=== PATIENT | female | born 1980 | race Caucasian/White ===

== ENCOUNTER → 2017-11-05 10:38 | Outpatient (CLI) | payer BC, SELFPAY ==
[2017-11-05 11:36] LABS: Add Manual Diff / Slide Review NO; Basophils Percent Auto 0.3 % (0-2); Eosinophils Percent Auto 1.1 % (2-4); Hematocrit 36.8 % (36-46); Hemoglobin 13.3 g/dL (12.0-16.0); Lymphocytes Percent Auto 13.1 % (25-40); Mean Corpuscular Hemoglobin 31.8 PG (26-34); Mean Corpuscular Volume 88.4 fL (80-100); Monocytes Percent Auto 5.8 % (3-14); Neutrophils Absolute Auto 9000 /uL (3000-5900); Neutrophils Percent Auto 79.7 % (50-75); Platelet Count 199 X10^3/uL (150-400); Red Blood Cell Count 4.17 X10^6/uL (4.0-5.2); Red Cell Distribution Width 12.9 % (11.6-14.8); White Blood Cell Count 11.4 X10^3/uL (4.5-11.0)
[2017-11-05 12:39] LABS: Appearance Urine UA CLEAR; Bilirubin Urine UA NEGATIVE (NEGATIVE); Color Urine UA YELLOW; Glucose Urine UA NEGATIVE (Normal); Ketones Urine UA NEGATIVE (NEGATIVE); Leukocyte Esterase Urine UA NEGATIVE (NEGATIVE); Nitrite Urine UA NEGATIVE (NEGATIVE); Occult Blood Urine UA TRACE-INTACT (Negative); Protein Urine UA NEGATIVE (Negative); Specific Gravity Urine UA 1.025 (1.000-1.035); Urobilinogen Urine UA 0.2 E.U./dL (0.2); pH Urine UA 6.5 (4.5-8.0)
[2017-11-05 12:50] LABS: Amorphous Sediment Urine 2+; Bacteria Urine Few (2-10); RBC Urine 1-5/HPF (0-5/HPF); Squamous Epithelial Cell Urine 1-5 /HPF; WBC Urine 0-1/HPF (0-5/HPF)
[2017-11-05 12:51] LABS: Culture Indicated Urine Cult Not Indicated
[2017-11-05 19:02] LABS: HIV 1 and 2 Antibody NEGATIVE (NEGATIVE); Hep C Virus Ab w/Reflex Quant NEGATIVE s/c (NEGATIVE); Hepatitis B Surface Antigen NEGATIVE s/c (NEGATIVE)
[2017-11-06 15:49] LABS: HSV 2 IGG AB < 0.90 index (< 0.90); HSV1IGG 7.56 index (< 0.90)
[2017-11-08 12:47] LABS: Rapid Plasma Reagin NON-REACTIVE
== END ==
PROVIDERS: Family Provider Family Medicine; PCP Family Medicine; Visit Provider Family Medicine
DX: Z34.91 Encounter for supervision of normal pregnancy, unspecified, first trimester (principal)
CPT/HCPCS: 36415; 80055; 82105; 86787; 86850; 86900; 86901; 87086

== ENCOUNTER → 2017-11-16 16:59 | Outpatient (CLI) | payer BC, SELFPAY ==
[2017-11-30 10:27] LABS: Informaseq SEE SEPERATE REPORT
== END ==
PROVIDERS: Family Provider Family Medicine; PCP Family Medicine; Visit Provider Family Medicine
DX: O09.529 Supervision of elderly multigravida, unspecified trimester (principal)
CPT/HCPCS: 36415; 81507

== ENCOUNTER → 2018-01-18 07:44 | Outpatient (CLI) | payer BC, SELFPAY ==
--- NOTE | 2018-01-18 07:46 | DI.US.S_ITS ---
PROCEDURE: US OB >= 14 WEEKS FETUS INDICATIONS: 20 WEEK ANATOMICAL SURVEY OUTSIDE/PRIOR DATING DATA: Last menstrual period (LMP): 09/05/17. LMP-based estimated date of delivery (FINN): 20 week 4 days. First dating scan (date and location): N./A.. Estimated date of delivery (FINN) from first dating scan: N./A.. TECHNIQUE: Real-time scanning was performed of the fetus, with image documentation and biometric measurements. Endovaginal scanning: None COMPARISON: None. FINDINGS: General: single living intrauterine gestation is present. Presentation: Vertex Placenta: Placental position is anterior, without previa. Amniotic fluid index: 14.5 cm, normal range is 5-24 cm. heart rate: 135 beats per minute. Maternal cervical canal: 3.2 cm long. Normal lower limit is 2.5 cm. biometrics: Biparietal diameter: 5 cm, 21 weeks zero days Head circumference: 18.2 cm, 20 weeks 4 days Abdominal circumference: 15.2 cm, 20 weeks 3 days Femur length: 3.3 cm, 20 weeks 2 days Estimated gestational age from initial scan: not applicable. Composite gestational age from present scan: 20 week 4 days Estimated weight and percentile: 353 g, 96% Measurement variability for biometric dating: +/- 7 days from 14 weeks to 15 weeks 6 days gestation, +/- 10 days from 16 weeks to 21 weeks 6 days gestation, +/- 2 weeks from 22 weeks to 27 weeks 6 days gestation, +/- 3 weeks for 28 weeks gestation or later. weight reference: 4500 g or EFW >90/95% is considered macrosomia or large for gestational age. EFW <10% is small for gestational age. EFW 5% or less is considered intra-uterine growth restriction. Anatomic survey: Neuro: Ventricles are non-dilated at less than 10 mm. Cisterna magna is normal at 3-11 mm. Cerebellum is normal in size and morphology. Nuchal skin fold: Normal at less than 6 mm between 14-21 weeks gestational age. Face: Nose and lips, facial profile are normal. Spine: No evidence for spina bifida. Heart: 4-chambered heart is present, with normal ventricular outflow tracts. Diaphragm: Diaphragm is intact. Stomach: Left-sided stomach is present. Kidneys: No hydronephrosis. Normal is less than 5 mm in 2nd trimester, less than 7 mm in 3rd trimester. Cord: 3-vessel cord has orthotopic insertion. Bladder: Normal in size. Extremities: All 4 extremities identified. IMPRESSION: Single live intrauterine with fetus in vertex presentation. heart rate is 135 beats per minute. Estimated gestational age is 20 weeks 4 days. Estimated due date current study is 06/03/18. Dictated by: Farhan August M.D. on 01/18/2018 at 8:42 Approved by: Farhan August M.D. on 01/18/2018 at 8:54
== END ==
PROVIDERS: PCP Family Medicine; Visit Provider Family Medicine
DX: Z36.89 Encounter for other specified antenatal screening (principal); Z3A.20 20 weeks gestation of pregnancy
CPT/HCPCS: 76811

== ENCOUNTER → 2018-01-28 09:34 | Outpatient (CLI) | payer BC, SELFPAY ==
--- NOTE | 2018-02-15 07:52 | PM.CARDMON.1 ---
Manager Community Development Report Referral & Results Date Patient Seen: 01/28/18 Requesting provider: Prema Alba Indication: Palpitations Duration of monitoring (days): 2 Diary information: There were no diary entries from the patient There 5 patient triggered events associated with sinus rhythm, PACs, and a single 5 beat run of SVT Data: The minimum heart rate identified was 60 beats per minute at 04:05 on 01/30/2018 Maximum sinus heart rate was 159 beats per minute at 17:16 on 01/30/2018 Maximum overall heart rate was 187 beats per minute at 16:32 on 01/30/2018 associated with that 5 beat run of SVT Less than 1% of identified beats were either supraventricular or ventricular ectopic in origin 5 runs of either SVT or supraventricular couplets or triplets were identified the longest of which was 9 beats at a rate of 120 beats per minute. Impression: This pot fireman demonstrates some supraventricular dysrhythmia that potentially could be causing symptoms based on patient's triggered event. However the overall burden of supraventricular events was really quite small. No other serious dysrhythmia is identified with this study Clinical correlation suggested
--- NOTE | 2018-02-15 07:55 | P.HOLT.S_ITS ---
Electronic Specialist Report Referral & Results Date Patient Seen: 01/28/18 Requesting provider: Prema Alba Indication: Palpitations Duration of monitoring (days): 2 Diary information: There were no diary entries from the patient There 5 patient triggered events associated with sinus rhythm, PACs, and a single 5 beat run of SVT Data: The minimum heart rate identified was 60 beats per minute at 04:05 on Maximum sinus heart rate was 159 beats per minute at 17:16 on 01/30/2018 Maximum overall heart rate was 187 beats per minute at 16:32 on 01/30/2018 associated with that 5 beat run of SVT Less than 1% of identified beats were either supraventricular or ventricular ectopic in origin 5 runs of either SVT or supraventricular couplets or triplets were identified the longest of which was 9 beats at a rate of 120 beats per minute. Impression: This manager monitoring demonstrates some supraventricular dysrhythmia that potentially could be causing symptoms based on patient's triggered event. However the overall burden of supraventricular events was really quite small. No other serious dysrhythmia is identified with this study Clinical correlation suggested
== END ==
PROVIDERS: PCP Family Medicine; Visit Provider Family Medicine
DX: R00.2 Palpitations (principal)
CPT/HCPCS: 0296T; 0298T

== ENCOUNTER → 2018-03-04 10:11 | Outpatient (CLI) | payer BC, SELFPAY ==
[2018-03-04 11:59] LABS: Add Manual Diff / Slide Review NO; Basophils Percent Auto 0.5 % (0-2); Eosinophils Percent Auto 0.7 % (2-4); Hematocrit 32.7 % (36-46); Hemoglobin 11.6 g/dL (12.0-16.0); Lymphocytes Percent Auto 8.4 % (25-40); Mean Corpuscular HGB Conc 35.5 % (30-36); Mean Corpuscular Hemoglobin 32.3 PG (26-34); Mean Corpuscular Volume 91.2 fL (80-100); Monocytes Percent Auto 4.8 % (3-14); Neutrophils Absolute Auto 10600 /uL (3000-5900); Neutrophils Percent Auto 85.6 % (50-75); Platelet Count 197 X10^3/uL (150-400); Red Blood Cell Count 3.59 X10^6/uL (4.0-5.2); Red Cell Distribution Width 12.6 % (11.6-14.8); White Blood Cell Count 12.4 X10^3/uL (4.5-11.0)
[2018-03-04 12:22] LABS: GTT (PREG) 1 Hour PP 50gm Dose 160 mg/dL (76-139)
== END ==
PROVIDERS: PCP Family Medicine; Visit Provider Family Medicine
DX: Z34.81 Encounter for supervision of other normal pregnancy, first trimester (principal); Z34.92 Encounter for supervision of normal pregnancy, unspecified, second trimester
CPT/HCPCS: 36415; 82950; 85025

== ENCOUNTER → 2018-03-22 08:53 | Outpatient (CLI) | payer BC, SELFPAY ==
[2018-03-22 10:22] LABS: Glucose Fasting Gestational 84 mg/dL (76-95)
[2018-03-22 11:02] LABS: Glucose 1 Hour Gest 139 mg/dL (76-180)
[2018-03-22 12:26] LABS: Glucose 2 Hour Gest 132 mg/dL (76-155)
[2018-03-22 12:29] LABS: Glucose Tol Interp,Gestational INTERPRETATION
[2018-03-22 13:08] LABS: Glucose 3 Hour Gest 72 mg/dL (76-140)
== END ==
PROVIDERS: PCP Family Medicine; Visit Provider Family Medicine
DX: O99.810 Abnormal glucose complicating pregnancy (principal)
CPT/HCPCS: 36415; 82951; 82952

== ENCOUNTER 2018-03-27 13:42 | Outpatient (CLI) | payer BC, SELFPAY ==
--- NOTE | 2018-03-27 15:41 | PM.OBTRLD ---
Visit Information Visit Information Date of evaluation: 03/27/18 Primary OB Provider: Prema Alba Reason for Evaluation: Yes pre-term labor Comments/Additional reasons for admission: Patient comes in complaining of severe abdominal pain 04/27. Vital Signs Vital Signs: Blood pressure 117/70, pulse of 86, temperature 36.3? Review of Systems Review of Systems Patient comes in complaining of severe abdominal pain 04/27. She was having at regularly for approximately 2-1/2 hours. By the time she got here and laid down the pain began going away. She denies any vaginal bleeding or change in vaginal discharge. No fevers. She states she is having regular bowel movements. No problems with urination. She thinks she is drinking a lot of fluids. All systems reviewed & are unremarkable except as noted in HPI and below Exam Vital Signs (past 8 hours): Blood pressure 117/70, pulse of 86, temperature 36.3? Narrative Exam Narrative: Abdomen is soft, with some trace tenderness in the upper abdomen. No tenderness to her uterus. Evaluation Evaluation Baseline heart rate: 125 Variability: Marked (>25) monitor accelerations: Present monitor decelerations: Absent Contraction Frequency (minutes): 15 Uterine Contraction Intensity: Mild Category of Tracing: I Diagnosis, Plan/Disposition Final Diagnosis (1) Abdominal pain during in third trimester: Current Visit: No Status: Acute Plan/Disposition Plan: Patient with upper abdominal pain that resolved when she arrived on Labor and delivery. No evidence of labor. Likely GI in origin. Patient is reassured she is to return if her symptoms reappear.
== END 2018-03-27 15:46 | disposition home or self-care (01) ==
LOC: LABOR 14:46 → OB 03-29 12:39
PROVIDERS: PCP Family Medicine; Visit Provider Family Medicine
DX: Z34.83 Encounter for supervision of other normal pregnancy, third trimester (principal); Z3A.29 29 weeks gestation of pregnancy; R10.9 Unspecified abdominal pain
CPT/HCPCS: 59025; 59050; G0378; G0379

== ENCOUNTER → 2018-04-29 14:23 | Outpatient (CLI) | payer BC, SELFPAY ==
--- NOTE | 2018-04-29 14:24 | DI.US.S_ITS ---
PROCEDURE: US OB LIMITED INDICATIONS: size >> dates OUTSIDE/PRIOR DATING DATA: Last menstrual period (LMP): 09/05/17. LMP-based estimated date of delivery (FINN): 06/12/18. First dating scan (date and location): 01/18/18. Estimated date of delivery (FINN) from first dating scan: 06/03/18 TECHNIQUE: Real-time scanning was performed of the fetus, with image documentation and biometric measurements. Endovaginal scanning: No COMPARISON: [facility], OB >= 14 WEEKS FETUS, 01/18/2018, 7:55. FINDINGS: General: A single living intrauterine gestation is present. Presentation: Vertex. Placenta: Placental position is anterior, without previa. Amniotic fluid index: 14.5 cm, normal range is 5-24 cm. heart rate: 135 beats per minute. Maternal cervical canal: 3.2 cm long. Normal lower limit is 2.5 cm. biometrics: Biparietal diameter: 35 weeks 4 days Head circumference: 36 weeks 6 days Abdominal circumference: 36 weeks 3 days Femur length: 35 weeks 5 days Estimated gestational age from initial scan: 35 weeks Composite gestational age from present scan: 36 weeks 1 day Estimated weight and percentile: 2883 g; 81st percentile Measurement variability for biometric dating: +/- 7 days from 14 weeks to 15 weeks 6 days gestation, +/- 10 days from 16 weeks to 21 weeks 6 days gestation, +/- 2 weeks from 22 weeks to 27 weeks 6 days gestation, +/- 3 weeks for 28 weeks gestation or later. weight reference: 4500 g or EFW >90/95% is considered macrosomia or large for gestational age. EFW <10% is small for gestational age. EFW 5% or less is considered intra-uterine growth restriction. Other: Not applicable. IMPRESSION: Single living IUP redemonstrated and interval growth is normal. Dictated by: Munir SCHULTZ Interpreted: Rodrick Lares MD on 04/29/2018 at 16:08 Approved by: Rodrick Lares M.D. on 04/30/2018 at 9:57
== END ==
PROVIDERS: PCP Family Medicine; Visit Provider Family Medicine
DX: O26.843 Uterine size-date discrepancy, third trimester (principal); O09.523 Supervision of elderly multigravida, third trimester; Z3A.36 36 weeks gestation of pregnancy
CPT/HCPCS: 76815

== ENCOUNTER → 2018-05-08 10:11 | Outpatient (CLI) | payer BC, SELFPAY ==
[2018-05-09 08:57] LABS: Strep Grp B PCR NEG for Grp B Strep
== END ==
PROVIDERS: PCP Family Medicine; Visit Provider Family Medicine
DX: Z3A.35 35 weeks gestation of pregnancy (principal)
CPT/HCPCS: 87653

== ENCOUNTER 2018-05-31 06:01 | Inpatient (IN) | payer BC, SELFPAY ==
--- NOTE | 2018-05-31 07:40 | PM.PREOP ---
Pre-operative Note Interval Note Pre-op Check: Yes History & Physical Reviewed by Physician and Yes Exam Performed Changes: No
--- NOTE | 2018-05-31 07:41 | P.HPOB_ITS ---
OB HPI Date/Time Date of admission: 05/31/18 Date Patient Seen: 05/31/18 Time Patient Seen: 07:35 History of Present Condition Chief complaint: [id number] : 3 Para: 2 Estimated Date of Delivery: 06/07/18 Estimated Gestational Age (weeks): 39w0d Narrative: Kristofer Patricio is a 37 year old at 39w0d who presented for primary for hx of forceps delivery with fractured clavicle during first and shoulder dystocia last . The pt reports that she has been feeling well. She denies any contractions, LOF, vaginal bleeding. She has been feeling baby move regularly. Indications Operative indications ( section): hx forceps with fractured clavicle History of Present care: good care and initiated at week # (10) Dating criteria: LMP confirmed by 1st trimester US Ultrasounds: normal mid trimester US Obstetrical complications: other (LGA baby) Medical complications: other (Crohns disease) Preadmission Labs Blood type: O (+) positive -: Antibody screen: negative, GBS status: negative, HBsAG: negative, HIV: negative, HSV 1: positive, HSV 2: negative and RPR/VDLR: negative HCT: 36.8 HCAB: negative Cell-free DNA: Normal 1 hr GTT: 160 3 hr GTT: 1 hr (139), 2 hr (132) and 3 hr (72) Prior (ies) History: 03/2005 at 38wks, 7lb4oz, forceps with fractured clavicle 11/2008 at 38wks, 8lb4oz, shoulder dystocia Evaluation Evaluation Baseline heart rate: 150 Variability: Moderate (11-25) monitor accelerations: Present monitor decelerations: Absent Category of Tracing: I Meds Home Medications Medication Instructions Recorded Confirmed Type prednisone 10 mg tablet 20 mg PO DAILY #20 tab 12/07/17 Rx 1 tab PO DAILY 12/07/17 12/07/17 History vitamin,calcium,tmmjdxbj-turp-vzhvw acid tablet Allergies Allergy/AdvReac Type Severity Reaction Status Date / Time balsalazide [BALSALAZIDE] Allergy Unknown Verified 12/07/17 11:35 mesalamine [MESALAMINE] Allergy Unknown Verified 12/07/17 11:35 metoclopramide [From REGLAN] Allergy Unknown Verified 12/07/17 11:35 Exam Narrative Exam Narrative: Gen: NAD, laying comfortably in bed, appears well CV: RRR, no murmurs Resp: clear to auscultation bilaterally Abd: soft, nontender, nondistended, gravid Ext: trace edema Objective Labs Result Diagrams: 05/31/18 06:40 Assessment and Plan (1) LGA (large for gestational age) fetus: Current visit: No Status: Acute (2) 39 weeks gestation of : Current visit: Yes Status: Acute (3) Crohn's disease: Onset Date: 03/16/11 Current visit: No Status: Chronic (4) Hx of shoulder dystocia in prior , currently : Current visit: Yes Status: Acute Plan: Plan: 37yo at 39w0d who presents for primary for hx of forceps with fractured clavicle and hx of shoulder dystocia. Pt consented in clinic earlier , reviewed today. Discussed risks of surgery including but not limited to infection, bleeding/hemorrhage, damage to other organs including the bowel and bladder, and injury to baby. Pt again agrees with plan. Pt desires tubal ligation as well. She is aware this is a non-reversible procedure. Pt agrees to blood transfusion if medically necessary. Plan for 2g Ancef prior to surgery.
[2018-05-31 08:05] LABS: Add Manual Diff / Slide Review NO; Basophils Percent Auto 0.9 % (0-2); Eosinophils Percent Auto 1.4 % (2-4); Hematocrit 36.2 % (36-46); Hemoglobin 12.5 g/dL (12.0-16.0); Lymphocytes Percent Auto 10.3 % (25-40); Mean Corpuscular HGB Conc 34.4 % (30-36); Mean Corpuscular Hemoglobin 30.7 PG (26-34); Mean Corpuscular Volume 89.2 fL (80-100); Monocytes Percent Auto 6.2 % (3-14); Neutrophils Absolute Auto 12900 /uL (1500-7000); Neutrophils Percent Auto 81.2 % (50-75); Platelet Count 197 X10^3/uL (150-400); Red Blood Cell Count 4.06 X10^6/uL (4.0-5.2); Red Cell Distribution Width 13.5 % (11.6-14.8); White Blood Cell Count 15.9 X10^3/uL (4.5-11.0)
[2018-05-31] MEDS: LACTATED RINGERS 1,000 ML 100 ML IV ×2 (10:15→18:59)
--- NOTE | 2018-05-31 11:17 | PM.OP.1 ---
Operative Date/Time/Diagnoses Date of procedure: 05/31/18 Time of procedure: 08:00 Pre-op diagnosis: 39w0d gestation Hx of shoulder dystocia and forceps delivery with fractured clavicle Crohns disease Post-op diagnosis: same Procedure & Clinicians Procedure: Primary Same procedure as scheduled: Yes Indications: Hx of shoulder dystocia Hx of forceps delivery with fractured clavicle Surgeon: Prema Alba Crime Victim Specialist: Radha Lassiter Click Yes if Unassisted: No Anesthesia Type: Spinal Operative Notes Findings: Normal uterus, ovaries, and tubes Closure Type: primary Specimen(s): other (fallopian tubes) Applied: catheter Estimated Blood Loss (mL): 850 Blood products transfused: none Procedure in detail: OPERATIVE COURSE: The patient was taken to the operating room where spinal anesthesia was placed. She was then prepared and draped in the normal sterile fashion in the dorsal supine position with a leftward tilt. Anesthesia was tested and found to be adequate. A Pfannensteil skin incision was then made with the scalpel and carried through to the underlying layer of fascia with the scalpel. The fascia was incised in the midline and the incision extended laterally with the Marquis scissors. The superior aspect of the fascial incision was then grasped with Chloe clamps, elevated, and the underlying rectus muscles dissected off bluntly and sharply where needed. Attention was then turned to the inferior aspect of the incision which, in a similar fashion, was grasped, tented up with Chloe clamps, and the rectus muscle dissected off bluntly and sharply with Marquis scissors. The rectus muscles were then in the midline, and the peritoneum was identified and entered bluntly. The peritoneal incision was then extended with good visualization of the bladder. The bladder blade was then inserted and the vesicouterine peritoneum identified, grasped with pick-ups and entered sharply with the Metzenbaum scissors. The incision was then extended laterally and the bladder flap created digitally. The bladder blade was then reinserted and the lower uterine segment incised in a transverse fashion with the scalpel. The uterine incision was then extended superolaterally by pulling superolaterally on both sides. Membranes were ruptured and fluid was clear. The bladder blade was removed the 's head was flexed out of OA position and delivered atraumatically. The nose and mouth were suctioned with bulb suction and the cord was clamped and cut. The was handed off to the waiting nursing staff. Cord blood was collected for Rh status. The placenta was then delivered by manual extraction. The uterus was then cleared of all clots and debris. The uterine incision was repaired with O Vicryl in a running, locked fashion. A second layer of the same suture was used for imbrication. For hemostasis, a [id number] was completed at the left side of the hysterotomy with O Vicryl. The bladder flap was then closed with 3-O Chromic. Bilateral tubal ligation: Attention was then turned to the patient's bilateral tubal ligation. A Lonnie was used to burr picker the left fallopian tube and a [place]-type of tubal ligation was performed using 0 plain gut suture, ligating each tube twice. The midportion was then excised and submitted for pathology. The same procedure was done on the opposite side. Hemostasis of stumps was excellent. The gutters were cleared of all clots. Hysterotomy was investigated and found to be hemostatic. The peritoneum was closed with 3-O Vicryl. The fascia was reapproximated with O Vicryl in a running fashion. The subcutaneous tissue was reapproximated with 3-O Vicryl. The skin was closed with 4-O Vicryl. ROM APPEARANCE: Clear BABY A DELIVERY TIME: 8:15 BABY A OUTCOME: Viable BABY A SEX: Male BABY A WEIGHT: 8lb9oz (3904g) BABY A NUCHAL CORD: x2 BABY A # CORD VESSELS: 3 BABY A 1 MINUTE: 9 BABY A 5 MINUTES: 9 PLACENTA DELIVERY TIME: 8:16 PLACENTAL DELIVERY TYPE: Manual extraction PLACENTA APPEARANCE: Intact SPONGE AND NEEDLE COUNTS: Correct x3. DRESSING: Aquacel ANTICOAGULATION: SCDs applied prior to Surgery Preop antibiotics given (see MAR). The patient was taken to recovery room having tolerated procedure well. Complications: none Condition: stable Disposition: PACU Plan for aftercare: Normal postoperative care Postoperative H/H tomorrow AM support
--- NOTE | 2018-05-31 11:27 | P.OP_ITS ---
Operative Date/Time/Diagnoses Date of procedure: 05/31/18 Time of procedure: 08:00 Pre-op diagnosis: 39w0d gestation Hx of shoulder dystocia and forceps delivery with fractured clavicle Crohns disease Post-op diagnosis: same Procedure & Clinicians Procedure: Primary Same procedure as scheduled: Yes Indications: Hx of shoulder dystocia Hx of forceps delivery with fractured clavicle Surgeon: Prema Alba Video System Repairer: Radha Lassiter Click Yes if Unassisted: No Anesthesia Type: Spinal Operative Notes Findings: Normal uterus, ovaries, and tubes Closure Type: primary Specimen(s): other (fallopian tubes) Applied: catheter Estimated Blood Loss (mL): 850 Blood products transfused: none Procedure in detail: OPERATIVE COURSE: The patient was taken to the operating room where spinal anesthesia was placed. She was then prepared and draped in the normal sterile fashion in the dorsal supine position with a leftward tilt. Anesthesia was tested and found to be adequate. A Pfannensteil skin incision was then made with the scalpel and carried through to the underlying layer of fascia with the scalpel. The fascia was incised in the midline and the incision extended laterally with the Marquis scissors. The superior aspect of the fascial incision was then grasped with Chloe clamps, elevated, and the underlying rectus muscles dissected off bluntly and sharply where needed. Attention was then turned to the inferior aspect of the incision which, in a similar fashion, was grasped, tented up with Chloe clamps, and the rectus muscle dissected off bluntly and sharply with Marquis scissors. The rectus muscles were then in the midline, and the peritoneum was identified and entered bluntly. The peritoneal incision was then extended with good visualization of the bladder. The bladder blade was then inserted and the vesicouterine peritoneum identified, grasped with pick- ups and entered sharply with the Metzenbaum scissors. The incision was then extended laterally and the bladder flap created digitally. The bladder blade was then reinserted and the lower uterine segment incised in a transverse fashion with the scalpel. The uterine incision was then extended superolaterally by pulling superolaterally on both sides. Membranes were ruptured and fluid was clear. The bladder blade was removed the infant's head was flexed out of OA position and delivered atraumatically. The nose and mouth were suctioned with bulb suction and the cord was clamped and cut. The infant was handed off to the waiting nursing staff. Cord blood was collected for Rh status. The placenta was then delivered by manual extraction. The uterus was then cleared of all clots and debris. The uterine incision was repaired with O Vicryl in a running, locked fashion. A second layer of the same suture was used for imbrication. For hemostasis, a [id number] was completed at the left side of the hysterotomy with O Vicryl. The bladder flap was then closed with 3-O Chromic. Bilateral tubal ligation: Attention was then turned to the patient's bilateral tubal ligation. A Dyer was used to moss picker the left fallopian tube and a [place]-type of tubal ligation was performed using 0 plain gut suture, ligating each tube twice. The midportion was then excised and submitted for pathology. The same procedure was done on the opposite side. Hemostasis of stumps was excellent. The gutters were cleared of all clots. Hysterotomy was investigated and found to be hemostatic. The peritoneum was closed with 3-O Vicryl. The fascia was reapproximated with O Vicryl in a running fashion. The subcutaneous tissue was reapproximated with 3-O Vicryl. The skin was closed with 4-O Vicryl. ROM APPEARANCE: Clear BABY A DELIVERY TIME: 8:15 BABY A OUTCOME: Viable BABY A SEX: Male BABY A WEIGHT: 8lb9oz (3904g) BABY A NUCHAL CORD: x2 BABY A # CORD VESSELS: 3 BABY A 1 MINUTE: 9 BABY A 5 MINUTES: 9 PLACENTA DELIVERY TIME: 8:16 PLACENTAL DELIVERY TYPE: Manual extraction PLACENTA APPEARANCE: Intact SPONGE AND NEEDLE COUNTS: Correct x3. DRESSING: Aquacel ANTICOAGULATION: SCDs applied prior to Surgery Preop antibiotics given (see MAR). The patient was taken to recovery room having tolerated procedure well. Complications: none Condition: stable Disposition: PACU Plan for aftercare: Normal postoperative care Postoperative H/H tomorrow AM support
[2018-05-31] MEDS: OXYCODONE/ACETAMINOPHEN 5/325 TABLET 2 TAB PO ×3 (12:56→21:05)
[2018-05-31 13:06] VITALS: BP 114/68
[2018-05-31] MEDS: KETOROLAC 30 MG/ML VIAL IV ×2 (17:09→23:20)
[2018-06-01] MEDS: OXYCODONE/ACETAMINOPHEN 5/325 TABLET 2 TAB PO ×2 (01:04→09:32)
[2018-06-01] MEDS: KETOROLAC 30 MG/ML VIAL IV (05:16)
[2018-06-01] MEDS: OXYCODONE/ACETAMINOPHEN 5/325 TABLET 1 TAB PO (05:28)
[2018-06-01 09:29] LABS: Hematocrit 28.2 % (36-46); Hemoglobin 9.9 g/dL (12.0-16.0)
[2018-06-01 09:32] VITALS: TEMP 36.6
[2018-06-01] MEDS: DOCUSATE 250 MG CAPSULE PO (09:32)
[2018-06-01] MEDS: FERROUS GLUCONATE 324 MG TABLET PO (09:58)
[2018-06-01] MEDS: LANOLIN OINT 7 GM 1 APPLIC TOP (09:59)
[2018-06-01] MEDS: IBUPROFEN 600 MG TABLET PO (19:21)
[2018-06-02] MEDS: IBUPROFEN 600 MG TABLET PO ×2 (02:01→08:49)
[2018-06-02] MEDS: FERROUS GLUCONATE 324 MG TABLET PO (08:46)
[2018-06-02 08:49] VITALS: TEMP 36.6
--- NOTE | 2018-06-02 11:57 | PM.OBPN.1 ---
Subjective - OB Narrative: The pt reports that overall she is feeling well. She is voiding and ambulating. She has passed flatus. She is with good latch. Her lochia is appropriate. Her pain is adequately controlled. She has no concerns today. Date Patient Seen: 06/01/18 Time Patient Seen: 11:00 Exam Vital Signs (past 8 hours): - 06/02/18 08:49 Temperature 98 F Narrative Exam Narrative: Gen: NAD, sitting comfortably in bed, appears well CV: RRR, no murmurs Resp: clear to auscultation bilaterally Abd: soft, nondistended, appropriately tender, fundus firm and below the umbilicus, dressing 80% saturated with old blood Ext: 1+ edema bilaterally Objective Labs Result Diagrams: 06/01/18 09:21 Assessment & Plan (1) LGA (large for gestational age) fetus: Status: Acute Current Visit: No (2) 39 weeks gestation of : Status: Acute Current Visit: Yes (3) Crohn's disease: Status: Chronic Current Visit: No (4) Hx of shoulder dystocia in prior , currently : Status: Acute Current Visit: Yes (5) S/P : Status: Acute Current Visit: Yes Plan Comments: 37yo POD#1 s/p primary due to hx of trauma with forceps delivery, and hx of shoulder dystocia. Pt doing well postoperatively, no complications thus far. - Normal postoperative care - support - Iron supplement for anemia - Change dressing prior to d/c tomorrow Time Spent With Patient Total time spent is greater than 50% in coordination of care (as documented) at patient's floor/unit and/or counseling patient: less than 15 minutes
[2018-06-02 11:59] VITALS: BP 127/70; PULSE 84; RESP 17; TEMP 36.2
--- NOTE | 2018-06-02 12:00 | PM.OBDS.1 ---
Discharge Providers Date of admission: 05/31/18 06:01 Primary care physician: Prema Alba MD Consults: 05/31/18 10:20 Consult to Animal Daycare Provider Routine Comment: Discharge provider: Prema Alba MD Discharge Date: 06/02/18 Summary Date Patient Seen: 06/02/18 Time Patient Seen: 11:45 Hospital Course: The pt presented for primary with bilateral tubal ligation. The surgery was without complications and she tolerated it well. She delivered a viable baby boy with APGARs 9/9. Postoperatively, the pt recovered well. At the time of discharge she was voiding, ambulating, and passing flatus without difficulty. Her lochia was decreasing appropriately. Her pain was well controlled. She was with good latch. Due to saturation and the right aspect of the dressing loosening, the pts dressing was changed without complications prior to d/c. She will f/u in 1 week for incision check. Peripartum Data Delivery Method: Section Procedures: Primary with bilateral tubal ligation complications: none 1: Gender: Male Disposition of : home Discharge Diagnosis (1) LGA (large for gestational age) fetus: Status: Acute (2) 39 weeks gestation of : Status: Acute (3) Crohn's disease: Status: Chronic (4) Hx of shoulder dystocia in prior , currently : Status: Acute (5) S/P : Status: Acute (6) History of bilateral tubal ligation: Status: Acute Time Spent with Patient Total time spent providing and/or coordinating discharge services: Greater than 30 minutes Objective Labs Result Diagrams: 06/01/18 09:21 Discharge Plan Discharge Plan Patient Disposition: Home Discharge Med Rec/Prescriptions Prescriptions: New acetaminophen 325 mg Tablet 650 mg PO Q6HR PRN (Reason: As Needed For Fever/Mild Pain) Qty: 30 RF: 0 oxycodone-acetaminophen 5-325 mg Tablet 2 tab PO Q4HR PRN (Reason: Pain, Moderate (4-6)) Qty: 40 RF: 0 ibuprofen 600 mg Tablet 600 mg PO Q6HR PRN (Reason: As Needed For Fever/Mild Pain) Qty: 30 RF: 0 lanolin [Nza-L-Gfxmlw] Cream 1 applic Topical PRN PRN (Reason: Irritation) Qty: 15 RF: 0 ferrous gluconate 324 mg (38 mg iron) Tablet 324 mg PO DAILY Qty: 30 RF: 0 Continue prenat.vits,gera,fcm-dpzs-msjnw [ Vitamin] tablet 1 tab PO DAILY RF: 0 Follow up/Referrals: Prema Alba MD [Primary Care Provider] - 1 Week (Pt will call on Sunday for a Sunday incision check appointment) Provider Discharge Instructions Diet: Diet as Tolerated Activity: No intercourse for 6 weeks No driving until off narcotic pain medication and able to move easily in car No heavy lifting Skin/Wound/Dressing Care Report to your healthcare provider any signs of infection, such as:: chills, fever, increased pain, unusual drainage and unusual redness Visit Report/Discharge Packet Instructions: DI for Heart Failure, DI for Stand Alone Forms: Discharge: Care Visit Report Forms: Congestive Heart Failure, Stroke Signs & Symptoms Discharge Data Primary Care Provider: Prema Alba Attending Provider: Prema Alba Admit Date/Time: 05/31/18 06:01
== END 2018-06-02 12:40 | disposition home or self-care (01) | DRG 784 ==
PROVIDERS: Family Medicine; Admitting Provider Family Medicine; PCP Family Medicine; Visit Provider Family Medicine
DX: O36.63X0 Maternal care for excessive fetal growth, third trimester, not applicable or unspecified (principal); K50.90 Crohn's disease, unspecified, without complications; Z3A.39 39 weeks gestation of pregnancy; Z37.0 Single live birth; O99.62 Diseases of the digestive system complicating childbirth; Z30.2 Encounter for sterilization
CPT/HCPCS: 36415; 59025; 59050; 59510; 59514; 85014; 85018; 85025; 86850; 86900; 86901; G0379; J1885; J2405; J2590; J2704; J3010

== ENCOUNTER → 2019-05-21 10:06 | Outpatient (CLI) | payer BC, SELFPAY | PROVIDERS: PCP Family Medicine; Visit Provider Physician Assistant | DX: N89.8 Other specified noninflammatory disorders of vagina (principal); R30.0 Dysuria | CPT/HCPCS: 87077; 87086; 87186; 87210 ==

== ENCOUNTER → 2023-10-29 10:20 | Outpatient (CLI) | payer BC, SELFPAY ==
[2023-10-29 11:22] LABS: Add Manual Diff / Slide Review NO; Basophils Absolute Auto 100 /uL (0-100); Basophils Percent Auto 0.9 % (0-2); Eosinophils Absolute Auto 500 /uL (0-450); Eosinophils Percent Auto 6.8 % (2-4); Hematocrit 37.8 % (36-46); Hemoglobin 13.3 g/dL (12.0-16.0); Lymphocytes Absolute Auto 1800 /uL (1100-4500); Lymphocytes Percent Auto 25.4 % (25-40); Mean Corpuscular HGB Conc 35.2 % (30-36); Mean Corpuscular Hemoglobin 31.2 PG (26-34); Mean Corpuscular Volume 88.6 fL (80-100); Monocytes Absolute Auto 600 /uL (0-900); Monocytes Percent Auto 8.3 % (3-14); Neutrophils Absolute Auto 4200 /uL (1500-7000); Neutrophils Percent Auto 58.6 % (50-75); Platelet Count 199 X10^3/uL (150-400); Red Blood Cell Count 4.27 X10^6/uL (4.0-5.2); Red Cell Distribution Width 13.1 % (11.6-14.8); White Blood Cell Count 7.2 X10^3/uL (4.5-11.0)
[2023-10-29 11:31] LABS: Hemoglobin A1C% w Est Avg Glu 5.4 % (4.0-6.0)
[2023-10-29 11:41] LABS: Alanine Aminotransferase 16 IU/L (<35); Albumin 4.4 g/dL (3.5-5.0); Albumin Globulin Ratio 1.9 (1.0-2.8); Alkaline Phosphatase 47 U/L (38-126); Aspartate Aminotransferase 24 IU/L (14-36); BUN Creatinine Ratio 14.5 (6-22); Bilirubin Total 1.2 mg/dL (0.2-1.3); Blood Urea Nitrogen 8 mg/dL (7-17); Calcium 8.9 mg/dL (8.4-10.2); Carbon Dioxide 23 mmol/L (22-32); Chloride 109 mmol/L (98-107); Cholesterol 154 mg/dL (140-199); Estimated Glomerular Filt Rate > 60 mL/min (>60); Globulin 2.3 g/dL (1.7-4.1); Glucose 96 mg/dL (70-100); HDL Cholesterol 87 mg/dL (40-60); HEMOLYSIS < 15 (0-50); LDL Cholesterol Calculated 54 mg/dL (<100); Potassium 3.9 mmol/L (3.4-5.1); Sodium 138 mmol/L (137-145); Total Protein 6.7 g/dL (6.3-8.2); Triglycerides 64 mg/dL (35-150)
[2023-10-29 12:05] LABS: TSH w/ Reflex to FT4 1.42 uIU/mL (0.47-4.68)
== END ==
PROVIDERS: PCP Family Medicine; Referring Provider Family Medicine; Visit Provider Family Medicine
DX: Z13.220 Encounter for screening for lipoid disorders (principal); R14.0 Abdominal distension (gaseous)
CPT/HCPCS: 36415; 80053; 80061; 83036; 84443; 85025

== ENCOUNTER → 2023-11-19 10:13 | Outpatient (CLI) | payer BC, SELFPAY ==
--- NOTE | 2023-11-19 10:13 | DI.US.S_ITS ---
PROCEDURE: US PELVIC COMPLETE INDICATIONS: BLOATING TECHNIQUE: Real-time scanning was performed of the pelvic organs, with image documentation. Additional endovaginal scanning was necessary due to incomplete visualization of the adnexal and endometrial structures by transabdominal scanning. COMPARISON: [facility], US, PELVIC COMPLETE, 03/18/2010, 15:14. FINDINGS: Uterus: Uterus is anteverted and normal in size at 10.5 x 5.3 x 7.4 cm. The myometrium is homogeneous. The endometrium measures 8.2 mm combined thickness. Calcifications are noted along the endometrial lining. Ovaries: The right ovary measures 1.4 x 2.2 x 1.7 cm, with a calculated ovarian volume of 2.9 cc. The left ovary measures 2.8 x 1.5 x 2.4 cm, with a calculated ovarian volume of 5.3 cc. The ovaries have a normal sonographic appearance. Less than 12 follicles can be seen in each ovary. No adnexal masses are seen. Other: No pathologic free abdominal or pelvic fluid. IMPRESSION: No cause for patient's symptoms identified. Normal appearance of the uterus and ovaries. We strive to produce accurate, complete, and clear reports of imaging services. To assist us in improving patient care, this report was composed using standard report templates and voice recognition software. Therefore, it may contain abnormal punctuation, insertions and/or omissions. Occasional wrong-word or sound-alike substitutions may occur. Though we review the report and make efforts to correct it, we do recommend that the report be read carefully in proper context to recognize any text inaccuracies. Dictated by: Evaristo Carrillo M.D. on 11/19/2023 at 13:28 Approved by: Evaristo Carrillo M.D. on 11/19/2023 at 13:29
== END ==
PROVIDERS: PCP Family Medicine; Referring Provider Family Medicine; Visit Provider Family Medicine
DX: R14.0 Abdominal distension (gaseous) (principal)
CPT/HCPCS: 76830; 76856

== ENCOUNTER 2023-12-31 12:51 | Day surgery (SDC) | payer BC, SELFPAY ==
--- NOTE | 2023-12-31 | PATH_ITS ---
[facility] Accession Number: [id number] No. of containers..07 Tissue . 01 Material submitted: . PART A: gastrointestinal site - ANTRUM PART B: gastrointestinal site - SAMPLING OF GASTRIC POLYPS PART C: colon - SIGMOID COLON PART D: colon - TRANSVERSE COLON PART E: colon - DESCENDING COLON PART F: colon - ASCENDING COLON PART G: rectum - RECTUM . 01 Diagnosis: A. GASTRIC ANTRUM, BIOPSY: Gastric antral and body mucosa with no diagnostic abnormality. No evidence of Helicobacter organisms on H/E stain. Negative for intestinal metaplasia. Negative for dysplasia or malignancy. . B. GASTRIC POLYPS, BIOPSIES: Fundic gland polyps. No evidence of Helicobacter organisms on H/E stain. Negative for intestinal metaplasia. Negative for dysplasia and malignancy. . C. SIGMOID COLON, BIOPSY: Colonic mucosa with no significant diagnostic abnormality. Negative for active inflammation, granulomas, dysplasia, and malignancy. . D. TRANSVERSE COLON, BIOPSY: Colonic mucosa with no significant diagnostic abnormality. Negative for active inflammation, granulomas, dysplasia, and malignancy. . E. DESCENDING COLON, BIOPSY: Colonic mucosa with no significant diagnostic abnormality. Negative for active inflammation, granulomas, dysplasia, and malignancy. . F. ASCENDING COLON, BIOPSY: Colonic mucosa with no significant diagnostic abnormality. Negative for active inflammation, granulomas, dysplasia, and malignancy. . G. RECTUM, BIOPSY: Colonic mucosa with no significant diagnostic abnormality. Negative for active inflammation, granulomas, dysplasia, and malignancy. [facility] 01/02/2024 1832 Local . 01 Electronically signed: . Alexandre Silverman MD, PhD, Pathologist NPI- [id number] . 01 Gross description: . Part A: ANTRUM: Received in formalin are 3 fragment(s) of alexander, soft tissue measuring 0.1 x 0.1 x 0.1 cm to 0.2 x 0.2 x 0.1 cm submitted entirely in 1 cassette(s) Part B: SAMPLING OF GASTRIC POLYPS: Received in formalin are multiple fragment(s) of alexander, soft tissue measuring 0.1 x 0.1 x 0.1 cm to 0.5 x 0.4 x 0.4 cm submitted entirely in 1 cassette(s) Part C: SIGMOID COLON: Received in formalin are 2 fragment(s) of alexander, soft tissue measuring 0.1 x 0.1 x 0.1 cm in aggregate submitted entirely in 1 cassette(s) Part D: TRANSVERSE COLON: Received in formalin are 2 fragment(s) of alexander, soft tissue measuring 0.1 x 0.1 x 0.1 cm to 0.3 x 0.3 x 0.2 cm submitted entirely in 1 cassette(s) Part E: DESCENDING COLON: Received in formalin are 2 fragment(s) of alexander, soft tissue measuring 0.2 x 0.2 x 0.1 cm to 0.3 x 0.3 x 0.2 cm submitted entirely in 1 cassette(s) Part F: ASCENDING COLON: Received in formalin are 2 fragment(s) of alexander, soft tissue measuring 0.1 x 0.1 x 0.1 cm to 0.2 x 0.2 x 0.1 cm submitted entirely in 1 cassette(s) Part G: RECTUM: Received in formalin are 2 fragment(s) of alexander, soft tissue measuring 0.1 x 0.1 x 0.1 cm in aggregate submitted entirely in 1 cassette(s) /JESSICA 01/01/2024 0113 Local . 01 Pathologist provided ICD-10: K31.7, K50.10 . 01 CPT . 206790, 336909, 358202, 658443, 579574, [id number], [id number] Specimen Comment: A courtesy copy of this report has been sent to [phone] Performed at: [address] [address], [place], [place] [id number] MD Edvin Quintana MD Phone: [phone]
[2023-12-31 13:39] VITALS: BP 127/78; PULSE 87; RESP 18; TEMP 36.8; O2SAT 99
[2023-12-31] MEDS: LACTATED RINGERS 1,000 ML 42 ML IV (13:58)
--- NOTE | 2023-12-31 14:09 | P.HP_ITS ---
History of Present Illness History of Present Illness Date Patient Seen: 12/31/23 Time Patient Seen: 14:09 Chief complaint: EGD/Colonoscopy Narrative: 43-year-old female with a history of Crohn's colitis here for EGD and colonoscopy. No changes from when I last saw Corrine in November of this year. I reviewed that office note. [facility] Medical History Vaginal delivery Crohns disease (~2005) Surgical History History of bilateral tubal ligation S/P Social History marital status: number of children: 3 household members: spouse and children lives independently: Yes occupational status: employed Smoking Status: Never smoker alcohol intake: current substance use type: does not use Meds Home Medications and Allergies Home Medications Medication Instructions Recorded Confirmed Type No Known Home Medications 11/23/23 12/31/23 History Allergies Allergy/AdvReac Type Severity Reaction Status Date / Time colisol Allergy Intermediate Uncoded 12/31/23 13:36 Review of Systems Review of Systems ROS: Yes All systems reviewed with the patient and are negative except as otherwise documented Exam Vital Signs (past 8 hours): - 12/31/23 13:39 Temperature 98.2 F Pulse Rate 87 Respiratory Rate 18 Blood Pressure 127/78 Pulse Oximetry 99 Oxygen Delivery Method Room Air Oxygen Delivery Method Room Air Const General: cooperative HENMT Head: normal to inspection Eyes General: appearance normal, both eyes and all related structures Neck Neck: normal visual inspection Chest Chest: normal inspection of the chest Resp Effort & Inspection: normal respiratory effort Cardio Rate: regular rate GI Inspection: normal to inspection Skin General: no rashes or lesions noted Neuro General: patient alert and patient awake Extrem General: normal to inspection and no pedal edema Psych Appearance: grossly normal Assessment & Plan Assessment & Plan narrative: 43-year-old female with a history of Crohn's colitis overdue for surveillance. She is symptoms of nonfocal abdominal pain, nausea, intermittent reflux. EGD and colonoscopy are pursued today. Time-Based Coding :: [TOTAL MINUTES] spent with patient and on the chart (including review of chart, obtaining history, exam, reviewing outside data, placing orders, documenting exam and treatment plan, and counseling patient) on [DATE].
--- NOTE | 2023-12-31 14:11 | PM.PREOP ---
Pre-operative Note Interval Note History & Physical reviewed/Exam performed by Physician: Yes Changes to H&P: No ASA Class (for procedural sedation): II
--- NOTE | 2023-12-31 16:01 | PM.OP.EC ---
Operative Date/Time/Diagnoses Date of procedure: 12/31/23 Time of procedure: 16:01 Pre-op diagnosis: Nausea, abdominal pain, GERD, history of Crohn's colitis Post-op diagnosis: same Procedure & Clinicians Study performed: EGD with biopsies and cold snare polypectomy Colonoscopy with random biopsies Same procedure as scheduled: Yes Indications: Nausea, abdominal pain, GERD, history of Crohn's colitis Surgeon: Yahir Pierre Procedure Notes SCOAP/Timeout: Done Procedure in detail: After the risks and benefits were explained, written and verbal informed consent was obtained. The patient was brought into the procedure room and placed into the left lateral decubitus position. Please see anesthesia notes for sedation details. The scope was introduced into the mouth through the bite block and advanced under direct visualization to the 2nd portion of the duodenum. The scope was slowly withdrawn carefully examining the mucosa for any defects or lesions. Retroflexed views were accomplished in the stomach. The stomach was decompressed, the scope was then removed from the patient who tolerated the procedure well. The patient was then turned around. A digital rectal examination was accomplished. The scope was introduced into the rectum and advanced to the cecum as identified by the appendiceal orifice and ileocecal valve. The terminal ileum was interrogated. The scope was then slowly withdrawn to carefully examine the mucosa for any defects or lesions. Multiple direct views were made through the dentate line for exclusion of pathology. The colon was decompressed. The scope was removed from the patient who tolerated the procedure well. Pediatric colonoscope Bowel prep adequate Scope withdrawal time: 14 minutes Sedation minutes: 39 Complications: none Impression: 1. Duodenal: This appeared normal from the bulb through to the 2nd portion. 2. Stomach: Patient had a mild gastropathy identified and biopsies were acquired from the antrum for exclusion of H pylori or other histopathology. Retroflexed views of the GEJ were unremarkable. There were a few scattered small benign-appearing polyps in the body of the stomach. A couple of these were sampled by way of biopsy forceps and cold snare polypectomy for a inside outside sales representative sample. 3. Esophagus: The squamocolumnar junction correlated with the top of the gastric folds. The GEJ was at approximately 40 cm from the incisors. There was no evidence of any stricturing. No evidence of any esophagitis. The esophagus was normal throughout. 4. Terminal ileum: This was visually normal. 5. Colon: There was a subtle loss of normal vascularity all throughout the rectum and colon. No ulcers or erosions identified throughout. There were a few classic diminutive pseudopolyps in and around the hepatic flexure region. Segmental biopsies were taken from the ascending, transverse, descending, sigmoid, and finally rectum for histopathologic analysis. Endoscopic diagnosis 1. Mild gastropathy 2. Diminutive gastric polyps 3. Otherwise visually normal EGD 4. Mild knowles colonic erythema 5. Normal terminal ileum Post-procedure Plan for aftercare: 1. Await histology. 2. If Helicobacter is found, it will need to be eradicated with standard triple therapy. 3. Follow up GI clinic to discuss long-term therapy in the context of the pending histology and symptoms. 4. Repeat colonoscopy will likely be suggested for about 2 years' time. Disposition: PACU
[2023-12-31 16:05] VITALS: BP 107/76; PULSE 75; RESP 16; TEMP 36.7; O2SAT 99
[2023-12-31 16:10] VITALS: BP 97/69; PULSE 81; RESP 15; TEMP 36.7; O2SAT 99
[2023-12-31 16:15] VITALS: BP 115/77; PULSE 79; RESP 18; TEMP 36.7; O2SAT 99
== END 2023-12-31 16:35 | disposition home or self-care (01) ==
PROVIDERS: PCP Family Medicine; Referring Provider Internal Medicine Gastroenterology; Visit Provider Internal Medicine Gastroenterology
PROC: 0DJ08ZZ Inspection of Upper Intestinal Tract, Via Natural or Artificial Opening Endoscopic (ICD-10-PCS; CPT 43235; principal; 2023-12-31 14:00)
PROC: 0DJD8ZZ Inspection of Lower Intestinal Tract, Via Natural or Artificial Opening Endoscopic (ICD-10-PCS; CPT 45378; 2023-12-31 14:00)
DX: R10.9 Unspecified abdominal pain (principal); R11.0 Nausea; K21.9 Gastro-esophageal reflux disease without esophagitis; Z87.19 Personal history of other diseases of the digestive system; K31.9 Disease of stomach and duodenum, unspecified; K31.7 Polyp of stomach and duodenum
CPT/HCPCS: 43251; 45380; 43239; J2704